=== PATIENT | female | born 1975 | race Caucasian/White ===

== ENCOUNTER 2019-11-19 14:49 | Emergency (ER) | payer BC ==
[~2019-11-19] VITALS: Ht 162.6 cm; Wt 135.2 kg
[2019-11-19] MEDS ORDERED: SING10TA32 PO (15:13)
[2019-11-19] MEDS ORDERED: TRAZ300T2 PO (15:13)
[2019-11-19] MEDS ORDERED: GABA-843 PO (15:13)
[2019-11-19] MEDS ORDERED: CYCL5TAB PO (15:13)
[2019-11-19] MEDS ORDERED: Blood Pressure Med (15:13)
[2019-11-19] MEDS ORDERED: AMBI10TA PO (15:13)
[2019-11-19] MEDS ORDERED: LIDOCAINE 1% MDV 20ML VIAL SC ONE (16:15)
[2019-11-19 17:05] VITALS: BP 157/92
== END 2019-11-19 17:10 | disposition home or self-care (01) ==
LOC: M ED 14:49
DX: S51.812A Laceration without foreign body of left forearm, initial encounter (principal); W26.8XXA Contact with other sharp object(s), not elsewhere classified, initial encounter; Y92.019 Unspecified place in single-family (private) house as the place of occurrence of the external cause; G47.30 Sleep apnea, unspecified; Z79.899 Other long term (current) drug therapy